=== PATIENT | female | born 1985 | race Two or more races ===

== ENCOUNTER 2022-09-22 18:30 | Emergency (ER) | payer SELFPAY ==
[~2022-09-22] VITALS: Ht 152.4 cm; Wt 59.0 kg
[2022-09-22 18:47] VITALS: BP 107/67
[2022-09-22] MEDS ORDERED: ACETAMINOPHEN 500 MG TAB PO ONE (19:00)
== END 2022-09-22 21:40 | disposition left against medical advice (07) ==
LOC: EDBD 18:30 → ER 18:30
DX: R50.9 Fever, unspecified (principal); R53.1 Weakness; Z53.21 Procedure and treatment not carried out due to patient leaving prior to being seen by health care provider

== ENCOUNTER 2022-09-23 20:17 | Emergency (ER) | payer SELFPAY ==
[~2022-09-23] VITALS: Ht 157.5 cm; Wt 61.4 kg
[2022-09-23] MEDS ORDERED: ACETAMINOPHEN 500 MG TAB PO ONE (21:15)
[2022-09-23] MEDS ORDERED: ONDANSETRON ODT 4 MG TAB PO ONE (21:15)
[2022-09-23] MEDS ORDERED: IBUPROFEN 600 MG TAB PO ONE (21:15)
[2022-09-23 21:42] LABS: Basophils # (auto) 0 10 ^3/uL (0-0.2); Eosinophils # (auto) 0 10 ^3/uL (0-0.8); Eosinophils % (auto) 0.1 % (0.0-7.0); Hemoglobin 9.7 g/dL (12.2-16.2); Mean Corpuscular Hgb Conc. 31.1 g/dL (32.0-36.0); Neutrophils # (auto) 9.7 10 ^3/uL (1.6-8.6); Red Blood Cells 4.29 10^6/uL (4.0-5.20); White Blood Cell 11.3 10^3/uL (4.4-10.8)
[2022-09-23 21:45] LABS: Basophils % (auto) 0.3 % (0.0-2.0); Hematocrit 31.3 % (36.0-46.0); Lymphocytes # (auto) 0.9 10 ^3/uL (0.4-5.4); Lymphocytes % (auto) 8.1 % (10.0-50.0); Mean Corpuscular Hemoglobin 22.7 pg (28.0-32.0); Monocytes # (auto) 0.7 10 ^3/uL (0-1.3); Monocytes % (auto) 5.8 % (0.0-12.0); Neutrophils % (auto) 85.7 % (37.0-80.0); Nucleated Red Blood Cells % 0.1 %; Red Cell Distribution Width 18.5 % (11.8-14.3)
[2022-09-23 21:50] LABS: Albumin 3.7 g/dL (3.4-5.0); Calcium 8.6 mg/dL (8.5-10.1); Potassium 3.5 mmol/L (3.5-5.1)
[2022-09-23 21:54] LABS: BUN/Creatinine Ratio 15.1 (10.0-20.0); Bilirubin, Total 0.5 mg/dL (0.2-1.0)
[2022-09-23] MEDS ORDERED: PENICILLIN G BENZ 1200000 UNITS/2 ML SYRG IM ONE ×2 (22:45→23:45)
[2022-09-24 00:37] VITALS: BP 110/72
[2022-09-24 01:11] LABS: Urine Bacteria MANY /hpf (None Seen); Urine Blood TRACE /uL (Negative); Urine Mucus MANY (None Seen); Urine Specific Gravity 1.031 (1.001-1.035); Urine WBC 95 /hpf (0 - 5)
[2022-09-24] MEDS ORDERED: ACET-1158 PO ×3 (01:40→02:12)
[2022-09-24] MEDS ORDERED: IBUP800T26 PO ×3 (01:40→02:12)
[2022-09-24] MEDS ORDERED: NITR-87 PO (02:00)
== END 2022-09-24 01:40 | disposition home or self-care (01) ==
LOC: ER 20:17
DX: J02.0 Streptococcal pharyngitis (principal); Z20.822 Contact with and (suspected) exposure to COVID-19
CPT/HCPCS: 36415; 71045; 80053; 81001; 81025; 85025; 87426; 87804; 87880; 96372; 99284; Q0162

== ENCOUNTER 2023-03-04 11:43 | Emergency (ER) | payer SELFPAY ==
[~2023-03-04] VITALS: Ht 152.4 cm; Wt 66.7 kg
[~2023-03-04 11:43] MED LIST: ACET500T58 PO; IBUP-1455 PO; NITR-87 PO
[2023-03-04 12:20] VITALS: BP 111/63; PULSE 104; RESP 18; O2SAT 100
== END 2023-03-04 16:41 | disposition left against medical advice (07) ==
LOC: ER 11:43
DX: N64.52 Nipple discharge (principal); Z53.21 Procedure and treatment not carried out due to patient leaving prior to being seen by health care provider